=== PATIENT | male | born 1965 | race Caucasian/White ===

== ENCOUNTER 2017-06-30 16:50 | Emergency (ER) | payer OTHER ==
[2017-06-30 16:59] VITALS: BMI 28.1
[2017-06-30] MEDS ORDERED: methylPREDNISolone NA SUCC 125 MG/2 ML VIAL IVPB ONE (17:15)
[2017-06-30] MEDS ORDERED: ONDANSETRON 4 MG/2 ML VIAL IVPUSH ONE (17:15)
[2017-06-30] MEDS ORDERED: morphine CARPU-JECT 2 MG/1 ML DISP.SYRIN IVPUSH ONE (17:15)
[2017-06-30] MEDS ORDERED: SODIUM CHLORIDE 1,000 ML IV STA (17:21)
[2017-06-30] MEDS ORDERED: morphine CARPU-JECT 2 MG/1 ML DISP.SYRIN ONE (17:28)
[2017-06-30] MEDS ORDERED: ONDANSETRON 4 MG/2 ML VIAL ONE (17:28)
[2017-06-30] MEDS ORDERED: methylPREDNISolone NA SUCC 125 MG/2 ML VIAL ONE (17:29)
--- NOTE | 2017-06-30 17:42 | PDOC ---
*Physical Exam - Vital Signs Last Vital Signs Temp Pulse Resp BP Pulse Ox 98.7 F 84 18 146/98 100 06/30/17 16:56 06/30/17 16:56 06/30/17 16:56 06/30/17 16:56 06/30/17 16:56 - Physical Exam Comments: 06/30/17 17:42 The patient is a 51 year old male with a significant past medical history of uncontrolled HTN and HLD who presents to the ED with facial drooping for one week. Patient reports left sided facial drooping. He states his left eye feels scratchy and he has difficulty drinking from the left side of his mouth. Patient reports visiting [facility] ED last Saturday and was told to have an infection of his face and discharged on antibiotics. Since then, patient states he developed left upper and lower extremity weakness and pressure-like pain. Patient denies vision changes. Denies chest pain or shortness of breath. Denies abdominal pain, nausea, vomiting, or diarrhea. Denies fevers or chills. Denies any other symptoms. GENERAL/CONSTITUTIONAL: No fever or chills. No weakness. HEAD, EYES, EARS, NOSE AND THROAT: No change in vision. No ear pain or discharge. No sore throat. CARDIOVASCULAR: No chest pain or shortness of breath. RESPIRATORY: No cough, wheezing, or hemoptysis. GASTROINTESTINAL: No nausea, vomiting, diarrhea or constipation. GENITOURINARY: No dysuria, frequency, or change in urination. MUSCULOSKELETAL: No neck or back pain. SKIN: No rash NEUROLOGIC:+ facial drooping, extremity weakness and pain. No headache, vertigo , loss of consciousness ENDOCRINE: No increased thirst. No abnormal weight change. HEMATOLOGIC/LYMPHATIC: No anemia, easy bleeding, or history of blood clots. ALLERGIC/IMMUNOLOGIC: No hives or skin allergy. GENERAL: Awake, alert, and fully oriented, in no acute distress HEAD: No signs of trauma EYES: PERRLA, EOMI, sclera anicteric, conjunctiva clear ENT: Auricles normal inspection, hearing grossly normal, nares patent, oropharynx clear without exudates. Moist mucosa NECK: Normal ROM, supple, no lymphadenopathy, JVD, or masses LUNGS: Breath sounds equal, clear to auscultation bilaterally. No wheezes, and no crackles HEART: Regular rate and rhythm, normal S1 and S2, no murmurs, rubs or gallops ABDOMEN: Soft, nontender, normoactive bowel sounds. No guarding, no rebound. No masses EXTREMITIES: Normal range of motion, no edema. No clubbing or cyanosis. No cords, erythema, or tenderness NEUROLOGICAL:+ Weakness of left eyelid muscle, with tearing of left eye. Facial asymmetry with left sided facial droop. No weakness to right or left side of the face. Normal speech SKIN: Warm, Dry, normal turgor, no rashes or lesions noted. <Yogesh Artis - Last Filed: 06/30/17 18:36> - Vital Signs Last Vital Signs Temp Pulse Resp BP Pulse Ox 98.7 F 84 18 146/98 100 06/30/17 16:56 06/30/17 16:56 06/30/17 16:56 06/30/17 16:56 06/30/17 16:56 <Melo Dumont - Last Filed: 07/03/17 08:17> Heart Score/ECG Review #1 06/30/17 18:36 Vent. rate 65 bpm NV interval 176 ms QRS duration 86 Normal sinus rhythm Reported by: Dr. Dumont <Yogesh Artis - Last Filed: 06/30/17 18:36> ED Treatment Course - LABORATORY CBC & Chemistry Diagram: 06/30/17 17:40 06/30/17 17:40 <Yogesh Artis - Last Filed: 06/30/17 18:36> - LABORATORY CBC & Chemistry Diagram: 06/30/17 17:40 06/30/17 17:40 - RADIOLOGY Radiology Studies Ordered: Category Date Time Status HEAD CT WITHOUT CONTRAST [CT] Stat CT Scan 06/30/17 17:15 Ordered CHEST X-RAY PORTABLE* [RAD] Stat Radiology 06/30/17 17:15 Ordered <Melo Dumont - Last Filed: 07/03/17 08:17> *DC/Admit/Observation/Transfer - Attestations Scribe Attestion: 06/30/17 17:43 Documentation prepared by Yogesh Artis, acting as medical research tech for Melo Dumont MD <Yogesh Artis - Last Filed: 06/30/17 18:36> <Melo Dumont - Last Filed: 07/03/17 08:17> Diagnosis at time of Disposition: Guillen's palsy - Discharge Dispostion Disposition: HOME Condition at time of disposition: Stable - Prescriptions Prescriptions: Prednisone [Prednisone 50 MG TABLETS] 50 mg PO DAILY #5 tablet - Referrals Referrals: Melani Burns MD [Primary Care Provider] - Ovi aMrtinez DO [Staff Physician] - - Patient Instructions Printed Discharge Instructions: DI for Guillen's Palsy Additional Instructions: Take the prednisone as prescribed for 5 days to treat your bells palsy. Call the above number to make an appointment with neurology clinic. Print Language: MALTESE - Post Discharge Activity Work/School Note: Back to Work NIH Stroke Scale - Last Known Well Date/Time & Onset Date Last Known Well: 06/27/17 (It has been a few days.... not exactly sure) Time Last Known Well: 07:00 (Not really sure.... in the morning) - Initial Evaluation Level of consciousness: Alert Ask patient the month and their age: Answers both correctly Ask patient to open & close eyes; make fist and let go: Obeys both correctly Best gaze (horizontal eye movement): Normal Visual field testing: No visual field loss Facial paresis (Show teeth/raise eyebrows/close eyes tight): Minor paralysis ( flattened nasolabial fold, asymmetry on smiling) Motor Function: Left Arm: Normal Motor Function: Right Arm: Normal (extends arm 90 (or 45) degrees for 10 seconds without drift Motor Function: Left Leg: Normal (extends leg 30 degrees for 5 seconds without drift) Motor Function: Right Leg: Normal (extends leg 30 degrees for 5 seconds without drift) Limb Ataxia: No ataxia Sensory(Use pinprick test arms,legs,trunk,face/side to side): Normal Best language (Describe picture, name items, read sentences): No Aphasia Dysarthria (read several words): Normal articulation Extinction and Inattention: No abnormality - Total Score NIH Stroke Scale Score: 1 <Melo Dumont - Last Filed: 07/03/17 08:17>
[2017-06-30] MEDS ORDERED: ACETAMINOPHEN 500 MG TABLET (FP) PO ONE (17:43)
[2017-06-30 17:48] LABS: BASOPHIL 1.2 % (0-2.0); EOSINOPHIL 5.5 % (0-4.5); MCH 30.8 pg (25.7-33.7); MCHC 34.6 g/dl (32.0-35.9); MEAN CELL VOLUME 88.9 fl (80-96); MEAN PLT VOLUME 9.4 fl (7.5-11.1); PLATELET COUNT 227 K/MM3 (134-434); RDW 13.2 % (11.9-15.9); WHITE BLOOD COUNT 6.8 K/mm3 (4.0-10.0)
[2017-06-30] MEDS ORDERED: ACETAMINOPHEN 325 MG TABLET (FP) ONE (17:48)
[2017-06-30 18:03] LABS: INR 0.91 (0.82-1.09)
[2017-06-30 18:07] LABS: ANION GAP 7 (8-16); BILIRUBIN,TOTAL 0.4 mg/dL (0.2-1.0); CALCIUM 8.9 mg/dL (8.5-10.1); CO2 26 mmol/L (21-32); CREATININE 1.1 mg/dL (0.7-1.3); GLUCOSE,RANDOM 127 mg/dL (74-106); SGOT/AST 19 U/L (15-37); SGPT/ALT 36 U/L (12-78); TOT PROT 6.7 g/dl (6.4-8.2)
[2017-06-30 18:10] LABS: ALK PHOS 125 U/L (45-117); CPK 146 IU/L (39-308); TROPONIN I < 0.02 ng/ml (0.00-0.05)
[2017-06-30] MEDS ORDERED: predniSONE 20 MG TABLET (UD) PO ONE (21:01)
--- NOTE | 2017-06-30 21:03 | PDOC ---
*Physical Exam - Vital Signs Last Vital Signs Temp Pulse Resp BP Pulse Ox 98.7 F 84 18 146/98 100 06/30/17 16:56 06/30/17 16:56 06/30/17 16:56 06/30/17 16:56 06/30/17 16:56 ED Treatment Course - LABORATORY CBC & Chemistry Diagram: 06/30/17 17:40 06/30/17 17:40 - ADDITIONAL ORDERS Additional order review: Laboratory Results 06/30/17 06/30/17 17:40 17:40 INR 0.91 Sodium 141 Potassium 3.7 Chloride 108 H Carbon Dioxide 26 Anion Gap 7 L BUN 16 D Creatinine 1.1 Creat Clearance w eGFR > 60 Random Glucose 127 H D Calcium 8.9 Total Bilirubin 0.4 AST 19 ALT 36 Alkaline Phosphatase 125 H Creatine Kinase 146 Troponin I < 0.02 Total Protein 6.7 Albumin 4.0 06/30/17 17:40 RBC 5.10 MCV 88.9 MCHC 34.6 RDW 13.2 MPV 9.4 Neutrophils % 56.0 Lymphocytes % 33.3 Monocytes % 4.0 Eosinophils % 5.5 H Basophils % 1.2 - Medications Given in the ED: ED Medications Discontinued Medications Generic Name Dose Route Start Last Admin Trade Name Freq PRN Reason Stop Dose Admin Acetaminophen 1,000 mg 06/30/17 17:43 06/30/17 17:46 Tylenol - PO 06/30/17 17:44 975 mg ONCE ONE Administration Sodium Chloride 1,000 mls @ 1,000 mls/hr 06/30/17 17:21 06/30/17 17:46 Normal Saline - IV 06/30/17 18:20 1,000 mls/hr ASDIR STA Administration Methylprednisolone Sodium Succinate 125 mg 06/30/17 17:15 06/30/17 17:46 Solu-Medrol - IVPB 06/30/17 17:16 125 mg ONCE ONE Administration Morphine Sulfate 2 mg 06/30/17 17:15 06/30/17 17:46 Morphine Injection - IVPUSH 06/30/17 17:16 Not Given ONCE ONE Ondansetron HCl 4 mg 06/30/17 17:15 06/30/17 17:46 Zofran Injection IVPUSH 06/30/17 17:16 Not Given ONCE ONE Medical Decision Making - Medical Decision Making 06/30/17 21:03 Sign out taken from Dr. Dumont at 7pm. Pt is 51M with h/o HTN, HLD presenting with 1 week of left facial droop. Exam notable for left sided facial droop WITHOUT sparing of forehead, consistent with [place] palsy. Pt with otherwise non-focal neuro exam. 5/5 strength all extremities, sensation intact. Normal cerebellar function, normal gait. - CTH negative - Pt started on prednisone, will prescribe 5 day course - F/u with neurology *DC/Admit/Observation/Transfer Diagnosis at time of Disposition: Guillen's palsy - Discharge Dispostion Disposition: HOME Condition at time of disposition: Stable - Referrals Referrals: Melani Burns MD [Primary Care Provider] - Ovi Martinez DO [Staff Physician] - - Patient Instructions Printed Discharge Instructions: DI for Guillen's Palsy Additional Instructions: Take the prednisone as prescribed for 5 days to treat your bells palsy. Call the above number to make an appointment with neurology clinic. - Post Discharge Activity Work/School Note: Back to Work
[2017-06-30] MEDS ORDERED: predniSONE 20 MG TABLET (UD) ONE (21:38)
[2017-06-30 21:48] VITALS: BP 157/89; PULSE 82; TEMP 97.5
--- NOTE | 2017-07-01 11:25 | EKG ---
Test Reason : Blood Pressure : / mmHG Vent. Rate : 065 BPM Atrial Rate : 065 BPM P-R Int : 176 ms QRS Dur : 086 ms QT Int : 390 ms P-R-T Axes : 057 059 050 degrees QTc Int : 405 ms NORMAL SINUS RHYTHM NORMAL ECG WHEN COMPARED WITH ECG OF 17-SEP-2016 16:34, NO SIGNIFICANT CHANGE WAS FOUND Confirmed by ZAHIDA BOWDEN MD ([id number]) on 07/01/2017 11:25:12 AM Referred By: Confirmed By:ZAHIDA BOWDEN MD
== END 2017-06-30 21:48 | disposition home or self-care (01) ==
LOC: JER 16:50
PROC: 3E0337Z Introduction of Electrolytic and Water Balance Substance into Peripheral Vein, Percutaneous Approach (ICD-10-PCS; principal; 2017-06-30)
PROC: 3E0333Z Introduction of Anti-inflammatory into Peripheral Vein, Percutaneous Approach (ICD-10-PCS; 2017-06-30)
DX: G51.0 Bell's palsy (principal); I10 Essential (primary) hypertension; E78.00 Pure hypercholesterolemia, unspecified
CPT/HCPCS: 36415; 70450-TC; 70486-TC; 71010-TC; 80053; 84484; 85025; 85610; 93005; 93010; 96361; 96374; 99285-25

== ENCOUNTER 2017-07-03 12:09 | Emergency (ER) | payer OTHER ==
[2017-07-03 12:19] VITALS: BMI 28.1
[2017-07-03] MEDS ORDERED: KETOROLAC TROMETHAMINE 60 MG/2 ML VIAL IM ONE (13:08)
--- NOTE | 2017-07-03 13:15 | PDOC ---
History of Present Illness - General History Source: Patient Exam Limitations: No Limitations - History of Present Illness Initial Comments: 07/03/17 18:48 The patient is a 51 year old male with a significant past medical history of uncontrolled HTN and HLD who presents to the ED with mass to his mid chest. Patient states that he developed mid sternal mass that is tender when he touches it. He states that feeling ocassionally SOB. He denies any hemoptysis, cp, cough, leg swelling, or palpitations. He states that his recent dc of Guillen s Palsy has improved. Patient was recently dc from [facility] on 06/30 after being dx with [place] Palsy and was prescribed prednisone. Patient was seen at [facility] ED a week before that and was prescribed clindamycin for infection of the face according to him. Patient denies vision changes. Denies chest pain or shortness of breath. Denies abdominal pain, nausea, vomiting, or diarrhea. Denies fevers or chills. Denies any other symptoms. PCP - Dr. Davis <Anamika Colon - Last Filed: 07/03/17 18:48> - General History Source: Patient Exam Limitations: No Limitations - History of Present Illness Initial Comments: 07/03/17 13:08 <Kristian Briones - Last Filed: 07/05/17 16:07> - General Chief Complaint: Pain Stated Complaint: PAIN/ LT SIDE, ABD Time Seen by Provider: 07/03/17 12:49 Past History <Anamika Colon - Last Filed: 07/03/17 18:48> - Past Medical History Diabetes: Yes HTN: Yes Hypercholesterolemia: Yes Psychiatric Problems: Yes (ANXIETY.) Suicide Attempt (Hx): No - Immunization History Immunization Up to Date: Yes - Psycho/Social/Smoking Cessation Hx Anxiety: Yes Suicidal Ideation: No Smoking Status: No Smoking History: Never smoked Have you smoked in the past 12 months: No Number of Cigarettes Smoked Daily: 0 Hx Alcohol Use: No Drug/Substance Use Hx: No Substance Use Type: None Hx Substance Use Treatment: No <Kristian Briones - Last Filed: 07/05/17 16:07> - Past Medical History Allergies/Adverse Reactions: Allergies Allergy/AdvReac Type Severity Reaction Status Date / Time Penicillins Allergy Intermediate Hives Verified 07/03/17 12:18 Home Medications: Ambulatory Orders Prednisone [Prednisone 50 MG TABLETS] 50 mg PO DAILY #5 tablet 06/30/17 Clindamycin [Cleocin -] 600 mg PO Q6H 07/03/17 Solifenacin Succinate [Vesicare -] 5 mg PO DAILY 07/03/17 Tamsulosin HCl 0.4 mg PO DAILY 07/03/17 Review of Systems - Review of Systems Able to Perform ROS?: Yes Comments:: 07/03/17 18:48 CONSTITUTIONAL: No reported: Fever, Chills, Diaphoresis, Generalized Weakness, Malaise, Loss of Appetite HEENT: No reported: Rhinorrhea, Nasal Congestion, Throat Pain, Throat Swelling, Difficulty Swallowing, Mouth Swelling, Ear Pain, Eye Pain, Visual Changes CARDIOVASCULAR: No reported: Chest Pain, Syncope, Palpitations, Irregular Heart Rate, Lightheadedness, Peripheral Edema RESPIRATORY: No reported: Cough, Shortness of Breath, SOB with Exertion, Orthopnea, Wheezing , Stridor, Hemoptysis GASTROINTESTINAL: No reported: Abdominal pain, Abdominal Distension, Nausea, Vomiting, Diarrhea, Constipation, Melena, Hematochezia GENITOURINARY: No reported: Dysuria, Frequency, Urgency, Hesitancy, Flank Pain, Genital Pain MUSCULOSKELETAL: No reported: Myalgia, Arthralgia, Joint Swelling, Back pain, Neck Pain SKIN: Reported: mass over sternum No reported: Rash, Itching, Pallor HEMEATOLOGIC/IMMUNOLOGIC: No reported: Easy Bleeding, Easy Bruising, Lymphadenopathy, Frequent infections ENDOCRINE: No reported: Unexplained Weight Gain, Unexplained Weight Loss, Heat Intolerance , Cold Intolerance NEUROLOGIC: No reported: Headache, Focal Weakness, Paresthesias, Vertigo, Lightheadedness, Unsteady Gait, Seizure, Mental Status Changes, Incontinence PSYCHIATRIC: No reported: Anxiety, Depression <Anamika Colon - Last Filed: 07/03/17 18:48> *Physical Exam - Vital Signs Last Vital Signs Temp Pulse Resp BP Pulse Ox 98.6 F 66 18 145/78 100 07/03/17 17:07 07/03/17 17:07 07/03/17 17:07 07/03/17 17:07 07/03/17 17:07 - Physical Exam Comments: 07/03/17 18:49 GENERAL: The patient is awake, alert, and fully oriented, Nontoxic - in no acute distress. HEAD:Normocephalic, atraumatic. EYES: extraocular movements intact, sclera anicteric, conjunctiva clear. ENT: Normal voice, Moist mucous membranes. NECK: Normal range of motion, supple LUNGS: Breath sounds equal, clear to auscultation bilaterally. No wheezes, no rhonchi, no rales. HEART: Regular rate and rhythm, without murmur, rub or gallop. CHEST: (+)mild tenderness to his sternum ABDOMEN: Soft, nontender, normoactive bowel sounds. No guarding, no rebound.No CVA tenderness EXTREMITIES: Normal range of motion, no edema. No clubbing or cyanosis. No cords , erythema, or tenderness. NEUROLOGICAL: (+)mild left sided facial weakness in v2v3 distribution. Normal speech. PSYCH: Normal mood, normal affect. SKIN: Warm, Dry, normal turgor <Anamika Colon - Last Filed: 07/03/17 18:48> - Vital Signs Last Vital Signs Temp Pulse Resp BP Pulse Ox 97.6 F 81 20 153/98 98 07/03/17 12:15 07/03/17 12:15 07/03/17 12:15 07/03/17 12:15 07/03/17 12:15 <Kristian Briones - Last Filed: 07/05/17 16:07> Heart Score/ECG Review - ECG Impressions Comment:: 07/03/17 13:42 Twelve-lead EKG was performed and reviewed by me. There is normal sinus rhythm with a normal rate. Rate of 64 The axis is normal. The intervals are normal. There is normal R wave progression There are no ST or T wave abnormalities. Impression: Normal twelve-lead EKG <Kristian Briones - Last Filed: 07/05/17 16:07> ED Treatment Course - LABORATORY CBC & Chemistry Diagram: 07/03/17 13:26 07/03/17 13:26 - ADDITIONAL ORDERS Additional order review: Laboratory Results 07/03/17 13:26 Sodium 142 Potassium 4.4 Chloride 105 Carbon Dioxide 31 Anion Gap 6 L BUN 15 Creatinine 1.0 Creat Clearance w eGFR > 60 Random Glucose 80 D Calcium 9.6 Total Bilirubin 0.5 D AST 16 ALT 39 Alkaline Phosphatase 113 Creatine Kinase 56 Troponin I < 0.02 Total Protein 7.3 Albumin 4.2 07/03/17 13:26 RBC 5.34 MCV 90.7 MCHC 33.1 RDW 13.3 MPV 9.1 Neutrophils % 57.7 Lymphocytes % 36.0 Monocytes % 5.5 Eosinophils % 0.4 D Basophils % 0.4 - Medications Given in the ED: ED Medications Discontinued Medications Generic Name Dose Route Start Last Admin Trade Name Stefano PRN Reason Stop Dose Admin Ketorolac Tromethamine 60 mg 07/03/17 13:08 07/03/17 13:26 Toradol Injection - IM 07/03/17 13:09 60 mg ONCE ONE Administration <Anamika Colon - Last Filed: 07/03/17 18:48> - LABORATORY CBC & Chemistry Diagram: 07/03/17 13:26 07/03/17 13:26 - RADIOLOGY Radiology Studies Ordered: Category Date Time Status CHEST PA & LAT [RAD] Stat Radiology 07/03/17 13:07 Ordered <Kristian Briones - Last Filed: 07/05/17 16:07> Medical Decision Making - Medical Decision Making 07/03/17 13:08 51y M hx of htn, hl, presents with complaint of bump on his chest tht is painful when he touches it for about a week. pt also endorses mild sob w/o coughm fever, chills, leg swelling, hemoptysis. On exam the pt appears well and has tenderness in the distal and mid sternum b/l to palpation. lungs are clear. he has some residulal L sided weaness along V2 and V3 distribution. suspect costocondritis due to risk factors will obtain trop and ekg cxr to r/o pna will reassess will give pt dose of toradol A portion of this note was documented by scribe services under my direction. I have reviewed the details of the note, within reason, and agree with the documentation with the following case summary and management plan written by me 07/03/17 13:42 07/03/17 16:27 [pts symptoms improved will d/c the pt with pmd fu return precuations were discussed I discussed the physical exam findings, ancillary test results and final diagnoses with the patient. I answered all of the patient's questions. The patient was satisfied with the care received and felt comfortable with the discharge plan and treatment plan. The patient will call their primary care physician within 24 hours to arrange follow-up and will return to the Emergency Department with any new, persistent or worsening symptoms. <Kristian Briones - Last Filed: 07/05/17 16:07> *DC/Admit/Observation/Transfer - Attestations Scribe Attestion: 07/03/17 18:39 Documentation prepared by JANICE Kessler, acting as administrative medical director for Kristian Briones MD. <Anamika Colon - Last Filed: 07/03/17 18:48> - Discharge Dispostion Admit: No <Kristian Briones - Last Filed: 07/05/17 16:07> Diagnosis at time of Disposition: Costochondral chest pain - Discharge Dispostion Disposition: HOME Condition at time of disposition: Improved - Referrals Referrals: Melani Burns MD [Primary Care Provider] - - Patient Instructions Printed Discharge Instructions: DI for Atypical Chest Pain Additional Instructions: Vuelva al departamento de emergencia inmediatamente con CUALQUIER nuevo, persistente o empeorando sntomas si usted tiene cualquier dolor de pecho, dificultad para respirar. [place] el ibuprofeno para george dolor. Debe llamar y seguir con george mdico maana para liberty evaluacin ms detallada de joelle sntomas. Los resultados fueron discutidos con usted. Por favor, asegrese de que george mdico revise los resultados de goerge evaluacin de emergencia. Si usted tuvo alguna radiografa cris george visita, fue ledo preliminarmente por m mismo, un Radilogo lo revisar y si hay algn hallazgo adicional lo llamaremos. ========= Return to the emergency department immediately with ANY new, persistent or worsening symptoms if you have any chest pain, shortness of breath. TAke ibuprofen for your pain. You MUST call and follow up with your doctor tomorrow for further evaluation of your symptoms. Results were discussed with you. Please make sure your doctor reviews the results of your emergency evaluation. If you had any xrays during your visit, it was read preliminarily by myself, a Radiologist will review it and if there are any additional findings we will call you. Print Language: BULGARIAN
[2017-07-03] MEDS ORDERED: KETOROLAC TROMETHAMINE 60 MG/2 ML VIAL ONE (13:34)
[2017-07-03 14:29] LABS: BASOPHIL 0.4 % (0-2.0); EOSINOPHIL 0.4 % (0-4.5); MCH 30.1 pg (25.7-33.7); MCHC 33.1 g/dl (32.0-35.9); MEAN CELL VOLUME 90.7 fl (80-96); MEAN PLT VOLUME 9.1 fl (7.5-11.1); NEUTROPHILS 57.7 % (42.8-82.8); PLATELET COUNT 225 K/MM3 (134-434); RDW 13.3 % (11.9-15.9)
[2017-07-03 14:52] LABS: ALBUMIN 4.2 g/dl (3.4-5.0); ANION GAP 6 (8-16); BILIRUBIN,TOTAL 0.5 mg/dL (0.2-1.0); CALCIUM 9.6 mg/dL (8.5-10.1); CO2 31 mmol/L (21-32); GLUCOSE,RANDOM 80 mg/dL (74-106); SGOT/AST 16 U/L (15-37); SGPT/ALT 39 U/L (12-78); TOT PROT 7.3 g/dl (6.4-8.2)
[2017-07-03 14:55] LABS: ALK PHOS 113 U/L (45-117); CPK 56 IU/L (39-308); TROPONIN I < 0.02 ng/ml (0.00-0.05)
[2017-07-03 17:09] VITALS: BP 145/78; PULSE 66; TEMP 98.6
--- NOTE | 2017-07-04 11:13 | EKG ---
Test Reason : Blood Pressure : / mmHG Vent. Rate : 064 BPM Atrial Rate : 064 BPM P-R Int : 176 ms QRS Dur : 088 ms QT Int : 378 ms P-R-T Axes : 057 048 053 degrees QTc Int : 389 ms NORMAL SINUS RHYTHM NORMAL ECG WHEN COMPARED WITH ECG OF 30-JUN-2017 18:34, NO SIGNIFICANT CHANGE WAS FOUND Confirmed by MARY BAER MD ([id number]) on 07/04/2017 11:12:38 AM Referred By: Confirmed By:MARY BAER MD
== END 2017-07-03 17:09 | disposition home or self-care (01) ==
LOC: JER 12:09
PROC: 3E0233Z Introduction of Anti-inflammatory into Muscle, Percutaneous Approach (ICD-10-PCS; principal; 2017-07-03)
DX: M94.0 Chondrocostal junction syndrome [Tietze] (principal)
CPT/HCPCS: 36415; 71020-TC; 80053; 84484; 85025; 93005; 93010; 96372; 99282-25

== ENCOUNTER 2017-12-09 17:34 | Emergency (ER) | payer OTHER ==
[2017-12-09 17:50] VITALS: BMI 28.1
--- NOTE | 2017-12-09 17:50 | PDOC ---
Rapid Medical Evaluation Time Seen by Provider: 12/09/17 17:46 Medical Evaluation: Allergies Allergy/AdvReac Type Severity Reaction Status Date / Time Penicillins Allergy Intermediate Hives Verified 12/09/17 17:46 12/09/17 17:46 The patient presents with a chief complaint of: [Fatigue, Increased urination.Generalized body aches, dizziness. for three days. ] I have performed a brief in-person evaluation of this patient. Pertinent physical exam findings: vss, [Lungs clear, RRR, HR 90. Abdomen is soft, non tender nondistended] I have ordered the following: [Rapid influenza, CBC, CMP UA, UC] The patient will proceed to the ED for further evaluation. Discharge Disposition - Diagnosis Dizziness - Referrals - Patient Instructions - Post Discharge Activity
[2017-12-09 18:21] LABS: EOS % 6.2 % (0-4.5); HEMATOCRIT 45.5 % (35.4-49); HEMOGLOBIN 15.5 GM/dL (11.7-16.9); LYMPH % 29.2 % (8-40); MCH 30.4 pg (25.7-33.7); MCHC 34.1 g/dl (32.0-35.9); MEAN CELL VOLUME 89.2 fl (80-96); MEAN PLT VOLUME 9.5 fl (7.5-11.1); MONO % 4.6 % (3.8-10.2); PLATELET COUNT 218 K/MM3 (134-434); RDW 13.3 % (11.9-15.9); WHITE BLOOD COUNT 8.3 K/mm3 (4.0-10.0)
[2017-12-09 18:26] LABS: URINE APPEARANCE CLEAR; URINE BILIRUBIN NEGATIVE (NEGATIVE); URINE BLOOD NEGATIVE (NEGATIVE); URINE COLOR COLORLESS; URINE GLUCOSE (UA) NEGATIVE (NEGATIVE); URINE KETONE NEGATIVE (NEGATIVE); URINE LEUK ESTERASE NEGATIVE (NEGATIVE); URINE NITRITE NEGATIVE (NEGATIVE); URINE PROTEIN NEGATIVE (NEGATIVE); URINE UROBILINOGEN NEGATIVE mg/dL (0.2-1.0)
--- NOTE | 2017-12-09 18:56 | PDOC ---
History of Present Illness - General History Source: Patient Exam Limitations: No Limitations, Language Barrier (kiswahili speaking, dry pan feeder used) - History of Present Illness Initial Comments: 12/09/17 19:49 The patient is a 52 year old male, with a significant past medical history of BPH, hypertension, and possible diabetes (patient unaware, but on prior charts) , who presents to the emergency department with dry mouth, fatigue, and increased urinary frequency for the past few days. He denies dysuria, urgency. He denies hematuria or abdominal pain. He denies chest pain, shortness of breath, headache and dizziness. He denies fever, chills, nausea, vomit, diarrhea and constipation. Allergies: NKDA PCP: Dr. Melgar <Minerva Johnson - Last Filed: 12/09/17 19:49> <Alisson Watsno - Last Filed: 12/09/17 19:58> - General Chief Complaint: Weakness Stated Complaint: FATIGUE Time Seen by Provider: 12/09/17 17:46 Past History <Minerva Johnson - Last Filed: 12/09/17 19:49> - Past Medical History COPD: No Diabetes: Yes HTN: Yes Hypercholesterolemia: Yes Psychiatric Problems: Yes (ANXIETY.) Other medical history: bph - Immunization History Immunization Up to Date: Yes - Suicide/Smoking/Psychosocial Hx Smoking Status: No Smoking History: Never smoked Have you smoked in the past 12 months: No Number of Cigarettes Smoked Daily: 0 Information on smoking cessation initiated: No Hx Alcohol Use: No Drug/Substance Use Hx: No Substance Use Type: None Hx Substance Use Treatment: No <Alisson Watson - Last Filed: 12/09/17 19:58> - Past Medical History Allergies/Adverse Reactions: Allergies Allergy/AdvReac Type Severity Reaction Status Date / Time Penicillins Allergy Intermediate Hives Verified 12/09/17 17:46 Home Medications: Ambulatory Orders Prednisone [Prednisone 50 MG TABLETS] 50 mg PO DAILY #5 tablet 06/30/17 Clindamycin [Cleocin -] 600 mg PO Q6H 07/03/17 Solifenacin Succinate [Vesicare -] 5 mg PO DAILY 07/03/17 Tamsulosin HCl 0.4 mg PO DAILY 07/03/17 Review of Systems - Review of Systems Able to Perform ROS?: Yes Comments:: 12/09/17 19:50 CONSTITUTIONAL: Absent: fever, chills, diaphoresis, generalized weakness, malaise, loss of appetite HEENT: Absent: rhinorrhea, nasal congestion, throat pain, throat swelling, difficulty swallowing, mouth swelling, ear pain, eye pain, visual Changes CARDIOVASCULAR: Absent: chest pain, syncope, palpitations, irregular heart rate, lightheadedness , peripheral edema RESPIRATORY: Absent: cough, shortness of breath, dyspnea with exertion, orthopnea, wheezing, stridor, hemoptysis GASTROINTESTINAL: Absent: abdominal pain, abdominal distension, nausea, vomiting, diarrhea, constipation, melena, hematochezia GENITOURINARY: (+) increased frequency, Absent: dysuria, urgency, hesitancy, hematuria, flank pain, genital pain MUSCULOSKELETAL: Absent: myalgia, arthralgia, joint swelling SKIN: Absent: rash, itching, pallor HEMATOLOGIC/IMMUNOLOGIC: Absent: easy bleeding, easy bruising, lymphadenopathy, frequent infections ENDOCRINE: Absent: unexplained weight gain, unexplained weight loss, heat intolerance, cold intolerance NEUROLOGIC: Absent: headache, focal weakness or paresthesias, dizziness, unsteady gait, seizure, mental status changes, bladder or bowel incontinence PSYCHIATRIC: Absent: anxiety, depression, suicidal or homicidal ideation, hallucinations. <Minerva Johnson - Last Filed: 12/09/17 19:49> *Physical Exam - Vital Signs Last Vital Signs Temp Pulse Resp BP Pulse Ox 98.5 F 90 18 165/100 100 12/09/17 17:47 12/09/17 17:47 12/09/17 17:47 12/09/17 17:47 12/09/17 17:47 - Physical Exam Comments: 12/09/17 19:50 GENERAL: Well developed, well nourished. Awake and alert. No acute distress. HEENT: (+) Dry mucous membranes. Normocephalic, atraumatic. PERRLA, EOMI. No conjunctival pallor. Sclera are non-icteric.Oropharynx is clear. NECK: Supple. Full ROM. No JVD. Carotid pulses 2+ and symmetric, without bruits. No thyromegaly. No lymphadenopathy. CARDIOVASCULAR: Regular rate and rhythm. No murmurs, rubs, or gallops. Distal pulses are 2+ and symmetric. PULMONARY: No evidence of respiratory distress. Lungs clear to auscultation bilaterally. No wheezing, rales or rhonchi. ABDOMINAL: Soft. Non-tender. Non-distended. No rebound or guarding. No organomegaly. Normoactive bowel sounds. MUSCULOSKELETAL Normal range of motion at all joints. No bony deformities or tenderness. No CVA tenderness. EXTREMITIES: No cyanosis. No clubbing. No edema. No calf tenderness. SKIN: Warm and dry. Normal capillary refill. No rashes. No jaundice. NEUROLOGICAL: Alert, awake, appropriate. Cranial nerves 2-12 intact. Normoreflexic in the upper and lower extremities. Normal speech. Toes are down-going bilaterally. Gait is normal without ataxia. PSYCHIATRIC: Cooperative. Good eye contact. Appropriate mood and affect. <Minerva Johnson - Last Filed: 12/09/17 19:49> - Vital Signs Last Vital Signs Temp Pulse Resp BP Pulse Ox 98.5 F 90 18 165/100 100 12/09/17 17:47 12/09/17 17:47 12/09/17 17:47 12/09/17 17:47 12/09/17 17:47 <Alisson Watson - Last Filed: 12/09/17 19:58> ED Treatment Course - LABORATORY CBC & Chemistry Diagram: 12/09/17 18:09 12/09/17 18:09 - ADDITIONAL ORDERS Additional order review: Laboratory Results 12/09/17 12/09/17 12/09/17 19:26 18:09 18:09 Sodium 140 Potassium 4.1 Chloride 106 Carbon Dioxide 24 D Anion Gap 10 BUN 16 Creatinine 1.1 Creat Clearance w eGFR > 60 POC Glucometer 93.66369 Random Glucose 89 Calcium 8.7 Total Bilirubin 0.4 AST 18 ALT 38 Alkaline Phosphatase 137 H D Total Protein 7.6 Albumin 4.3 Urine Color Colorless Urine Appearance Clear Urine pH 6.0 Ur Specific [place] 1.002 Urine Protein Negative Urine Glucose (UA) Negative Urine Ketones Negative Urine Blood Negative Urine Nitrite Negative Urine Bilirubin Negative Urine Urobilinogen Negative Ur Leukocyte Esterase Negative 12/09/17 18:09 Influenza Types A,B Antigen (YOHAN) - Final Nasopharyngeal Swab - Final 12/09/17 12/09/17 19:26 18:09 RBC 5.10 MCV 89.2 MCHC 34.1 RDW 13.3 MPV 9.5 Neutrophils % 59.0 Lymphocytes % 29.2 Monocytes % 4.6 Eosinophils % 6.2 H D Basophils % 1.0 POC Glucometer 93.35211 <Minerva Johnson - Last Filed: 12/09/17 19:49> - LABORATORY CBC & Chemistry Diagram: 12/09/17 18:09 12/09/17 18:09 - ADDITIONAL ORDERS Additional order review: Laboratory Results 12/09/17 18:09 Urine Color Colorless Urine Appearance Clear Urine pH 6.0 Ur Specific [place] 1.002 Urine Protein Negative Urine Glucose (UA) Negative Urine Ketones Negative Urine Blood Negative Urine Nitrite Negative Urine Bilirubin Negative Urine Urobilinogen Negative Ur Leukocyte Esterase Negative 12/09/17 18:09 RBC 5.10 MCV 89.2 MCHC 34.1 RDW 13.3 MPV 9.5 Neutrophils % 59.0 Lymphocytes % 29.2 Monocytes % 4.6 Eosinophils % 6.2 H D Basophils % 1.0 <Alisson Watson - Last Filed: 12/09/17 19:58> Medical Decision Making - Medical Decision Making 12/09/17 19:30 52-year-old man presents with complaint of persistent increased frequency, dry mouth and some fatigue. Patient states he's been urinating constantly over the past few days. He is afebrile. He has no nausea, vomiting or diarrhea. He has benign abdominal exam. He has a history of BPH and states that his primary doctor is Dr. Melgar He was hypotensive upon arrival. States he's been told that his blood pressure is elevated. The past that he's never taken any blood pressure medicines. Last time he saw /year. Urinalysis is negative CBC is within normal limits Chemistries are unremarkable. Glucose of 89. He had also done a BGM on the patient was 93. He was 16 and creatinine is 1.1. His electrolytes are within normal limits and his liver function tests are unremarkable. Impression dysuria. Plan to follow Dr. Melgar and also refer this patient to the urologist <Alisson Watson - Last Filed: 12/09/17 19:58> *DC/Admit/Observation/Transfer - Attestations Scribe Attestion: 12/09/17 19:51 Documentation prepared by Minerva Johnson, acting as medical staff manager for Alisson Watson MD <Minerva Johnson - Last Filed: 12/09/17 19:49> <Alisson Watson - Last Filed: 12/09/17 19:58> Diagnosis at time of Disposition: Urinary frequency, Xerostomia, Benign prostatic hyperplasia (BPH) with urinary urgency - Discharge Dispostion Disposition: HOME Condition at time of disposition: Stable - Referrals Referrals: Melani Melgar MD [Primary Care Provider] - - Patient Instructions Printed Discharge Instructions: DI for Benign Prostatic Hyperplasia, DI for High Blood Pressure Additional Instructions: 1. YOU NEED TO SEE DR MELGAR FOR FURTHER FOLLOWUP 2.YOU MAY NEED TO SEE A UROLOGIST - Post Discharge Activity
[2017-12-09 18:59] LABS: ALBUMIN 4.3 g/dl (3.4-5.0); ANION GAP 10 (8-16); BILIRUBIN,TOTAL 0.4 mg/dL (0.2-1.0); BLOOD UREA NITROGEN 16 mg/dL (7-18); CALCIUM 8.7 mg/dL (8.5-10.1); CHLORIDE 106 mmol/L (98-107); CO2 24 mmol/L (21-32); CREATININE 1.1 mg/dL (0.7-1.3); GLUCOSE,RANDOM 89 mg/dL (74-106); POTASSIUM 4.1 mmol/L (3.5-5.1); SGOT/AST 18 U/L (15-37); SGPT/ALT 38 U/L (12-78); SODIUM 140 mmol/L (136-145)
[2017-12-09 19:01] LABS: ALK PHOS 137 U/L (45-117); TOT PROT 7.6 g/dl (6.4-8.2)
[2017-12-09 19:56] VITALS: BP 142/86; PULSE 77; TEMP 98.2
== END 2017-12-09 20:30 | disposition home or self-care (01) ==
LOC: JER 17:34
DX: I10 Essential (primary) hypertension (principal); E78.00 Pure hypercholesterolemia, unspecified; E11.9 Type 2 diabetes mellitus without complications; Z79.84 Long term (current) use of oral hypoglycemic drugs; N40.0 Benign prostatic hyperplasia without lower urinary tract symptoms; N40.1 Benign prostatic hyperplasia with lower urinary tract symptoms; R39.15 Urgency of urination; K11.7 Disturbances of salivary secretion; R68.2 Dry mouth, unspecified
CPT/HCPCS: 36415; 80053; 81003; 82962; 85025; 87086; 87804; 99283-25

== ENCOUNTER 2018-10-25 09:56 | Emergency (ER) | payer SELFPAY ==
[2018-10-25 10:17] VITALS: TEMP 98.1; BMI 29.0
--- NOTE | 2018-10-25 10:37 | PDOC ---
Attending Attestation - HPI HPI: 10/25/18 11:30 The patient is a 53 year old male, with a significant past medical history of HTN, HLD, and DM, who presents to the emergency department with, pleuritic chest discomfort, nasal congestion, sinus congestion, and productive cough. Patient endorses mild right sided facial pain. 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 Samayoa, without any pertinent findings. He denies any recent dizziness. He denies any recent nausea, vomit, diarrhea or constipation. He denies any recent palpitations shortness of breath. He denies any recent dysuria, frequency, urgency or hematuria. Allergies: Penicillins. Past surgical history: None reported. Social History: Former smoker. Financial Quantitative Analyst: Dr. Samayoa <Sally Conner - Last Filed: 10/25/18 11:30> - Resident Resident Name: Herminia Wolfe - ED Attending Attestation I have performed the following: I have examined & evaluated the patient, The case was reviewed & discussed with the resident, I agree w/resident's findings & plan, Exceptions are as noted - Physicial Exam PE: 10/25/18 12:08 HEENT: +ttp to R frontal sinus pulm: cta b/l, no acute respiratory distress - Medical Decision Making 10/25/18 10:38 53y M hx of htn, hl, dm, presents with several days of nasal congestion, productive cough. Pt also complaining R sided confucianist/facial pain. pt endorses some pleuritic L cp worse with deep breaths and coughs. n oassociated fevers/ lopez, leg swelling hemotpysis. 10/25/18 12:08 suspect viral syndrome/bronchitis influenza negative xray negative for acute pulm mathology will dc with pmd fu return precautions were discussed 10/28/18 09:18 <Kristian Briones - Last Filed: 10/28/18 09:18> Heart Score/ECG Review - ECG Impressions Comment:: 10/25/18 12:08 Twelve-lead EKG was performed and reviewed by me. There is normal sinus rhythm with a normal rate. rate of 75 The axis is normal. The intervals are normal. There is normal R wave progression There are no ST or T wave abnormalities. Impression: Normal twelve-lead EKG <Kristian Briones - Last Filed: 10/28/18 09:18> Attestations - Attestations 10/25/18 11:30 Documentation prepared by Sally Conner, acting as medical affairs leader for Kristian Briones MD. <Sally Conner - Last Filed: 10/25/18 11:30>
--- NOTE | 2018-10-25 10:42 | PDOC ---
History of Present Illness - General Chief Complaint: Chest Pain Stated Complaint: CHEST PAIN, HEADACHE, BREATHING PROBLEMS Time Seen by Provider: 10/25/18 10:04 - History of Present Illness Initial Comments: Alejandro Hermosillo is a 53yo man with a PMH of HTN, HLD, DM who presents with productive cough, nasal congestion, sinus congestion and pain as well as pleuritic chest tenderness that have worsened since yesterday. He reports that for several days, he has had nasal congestion and has been unable to breath through his right nostril. Starting yesterday, he has also had pain on the right face and hindu that prevented him from sleeping. He additionally complains of a productive cough and now left-sided chest pain, especially at the sternum and left lateral ribs, with coughing and deep breaths. Mr Hermosillo also reports right flank pain that has been present for months as well as left thigh pain that is also chronic and mild. He says that neither of these bothers him much. Mr Hermosillo denies any fevers, shivering chills, shortness of breath, nausea/ vomiting, urinary changes, or changes in bowel habits. He has not tried any medications at home for his symptoms. He presented for evaluation because the sinus pain and congestion were preventing him from sleeping well. Past History - Past Medical History Allergies/Adverse Reactions: Allergies Allergy/AdvReac Type Severity Reaction Status Date / Time Penicillins Allergy Intermediate Hives Verified 10/25/18 10:04 Home Medications: Ambulatory Orders Prednisone [Prednisone 50 MG TABLETS] 50 mg PO DAILY #5 tablet 06/30/17 Solifenacin Succinate [Vesicare -] 5 mg PO DAILY 07/03/17 Tamsulosin HCl 0.4 mg PO DAILY 07/03/17 Aspirin [ASA -] 81 mg PO DAILY 10/25/18 COPD: No Diabetes: Yes HTN: Yes Hypercholesterolemia: Yes Psychiatric Problems: Yes (ANXIETY.) - Immunization History Immunization Up to Date: Yes - Suicide/Smoking/Psychosocial Hx Smoking Status: No Smoking History: Former smoker Have you smoked in the past 12 months: No Number of Cigarettes Smoked Daily: 0 Information on smoking cessation initiated: No Hx Alcohol Use: No Drug/Substance Use Hx: No Substance Use Type: None Hx Substance Use Treatment: No Review of Systems - Review of Systems Comments:: General: No fevers, no chills, no weight or appetite change, no malaise HEENT: No changes in vision, no changes in hearing, +Nasal and sinus congestion , +sinus pain, no sore throat CV: +Pleuritic lateral chest pain, No palpitations, no LE edema Pulm: No SOB, +productive cough, no wheezing GI: No nausea or vomiting, no change in bowel habits, no melena : No frequency, no urgency, no dysuria Musc: No back pain, no joint swelling, no recent injury Skin: No rash, no lesions, no erythema Endo: No excessive thirst, no heat/cold intolerance Heme: No unusual bruising or bleeding, no swollen glands Neuro: No syncope, no numbness/tingling, no focal weakness Vasc: No claudication Psych: No recent change in mood, no SI or HI *Physical Exam - Vital Signs Last Vital Signs Temp Pulse Resp BP Pulse Ox 98.1 F 84 19 130/91 99 10/25/18 10:04 10/25/18 10:04 10/25/18 10:04 10/25/18 10:04 10/25/18 10:04 - Physical Exam Comments: General: Comfortable, no acute distress HEENT: PERRL, EOMI, MMM, voice nasal and c/w congestion, normal neck ROM, no LAD. Right-sided sinus tenderness. Cards: RRR, no murmur appreciated Pulm: Comfortable on room air, clear to auscultation bilaterally. Productive cough. Chest: Reproducible sternal and left lateral chest wall pain with palpation. Back: No spinal tenderness. Abd: Soft, nontender, nondistended : No CVA tenderness Ext: Atraumatic. No LE edema. ROM intact. Strength 5/5 and equal bilaterally. No TTP along left thigh. Vasc: Extremities WWP. Skin: Normal color, no rashes or lesions Neuro: A&Ox3, CN grossly intact, normal speech, motor/sensory grossly intact and symmetric Psych: Mood appropriate to situation Moderate Sedation - Procedure Monitoring Vital Signs: Procedure Monitoring Vital Signs Temperature 98.1 F 10/25/18 10:04 Pulse Rate 84 10/25/18 10:04 Respiratory Rate 19 10/25/18 10:04 Blood Pressure 130/91 10/25/18 10:04 O2 Sat by Pulse Oximetry (%) 99 10/25/18 10:04 ED Treatment Course - RADIOLOGY Radiology Studies Ordered: Category Date Time Status CHEST PA & LAT [RAD] Stat Radiology 10/25/18 10:32 Ordered Medical Decision Making - Medical Decision Making 10/25/18 11:09 Alejandro Hermosillo is a 53yo man with a PMH of HTN, HLD, DM who presents with productive cough, nasal congestion, sinus congestion and pain as well as pleuritic chest tenderness that have worsened since yesterday. He reports that for several days, he has had nasal congestion and has been unable to breath through his right nostril. Starting yesterday, he has also had pain on the right face and hindu that prevented him from sleeping. He additionally complains of a productive cough 10/25/18 11:26 - Chest xray completed. Reviewed and also read by radiology. - Ibuprofen 800mg PO ordered for pain/inflammation - Most likely viral respiratory infection - Plan to d/c home pending flu results. Will discuss home care and return precautions. 10/25/18 11:48 - Rapid flu negative - Discharge home Discussed with Dr Briones. Herminia Wolfe PGY1 *DC/Admit/Observation/Transfer Diagnosis at time of Disposition: Viral URI with cough, Sinusitis, acute - Discharge Dispostion Disposition: HOME Condition at time of disposition: Stable Decision to Admit order: No - Referrals Referrals: Melani Burns MD [Staff Physician] - - Patient Instructions Printed Discharge Instructions: DI for Sinusitis, DI for Viral Upper Respiratory Infection -- Adult Additional Instructions: Discharge Instructions: You were seen in the emergency department for sinus pain, cough, and chest pain with deep breathing. These are all most likely due to a viral respiratory infection and nasal/sinus congestion. Home Care: - You may take 600-800mg ibuprofen (Motrin or Advil) every 6 hours as needed for pain an discomfort - You may get some relief of your congestion if you use a saline nasal spray to increase moisture in your nose. This spray can be purchased at any pharmacy. You can use 1-2 sprays in each nostril as needed. - You can get a nasal wash such as a NetiPot at any pharmacy. This nasal wash helps remove congestion and irritants from your nose and sinuses - Use a humidifier at night, placed near your bed, to help relieve your symptoms of congestion. You can also use a hot shower or steam if you do not have a humidifier - Your chest pain is most likely due to irritation from frequent coughing. Using ibuprofen as mentioned (600-800mg every 6 hours) will help with this pain. - Try to drink extra fluids. Hot liquids such as tea or soup may help relieve your symptoms. Follow Up: - Make an appointment to see your regular doctor within the next week for follow up - Seek medical care if you develop fevers to 101F or higher, your symptoms do not improve within 7 days, you develop worsening cough with a lot of mucous production, or if your chest pain worsens, is associated with exercise, or is accompanied by sweating, shortness of breath, or lightheadedness. Instrucciones de descarga: Usted fue atendido en el departamento de emergencias por dolor sinusal, tos y dolor de pecho con respiracin profunda. Todo esto es ms probable debido a liberty infeccin respiratoria viral y congestin nasal / sinusal. Cuidados en el hogar: - Puede katt 600-800 mg de ibuprofeno (Motrin o Advil) cada 6 horas segn sea necesario para el dolor y el malestar. - Puede obtener algo de alivio de george congestin si usa un aerosol nasal de solucin salina para aumentar la humedad en la nariz. Elvira spray se puede comprar en cualquier farmacia. Puede usar 1-2 pulverizaciones en cada fosa nasal segn sea necesario. - Puede obtener un lavado nasal philip un NetiPot en cualquier farmacia. Elvira lavado nasal ayuda a eliminar la congestin y los irritantes de la nariz y los senos nasales. - Use un humidificador por la noche, colocado cerca de george cama, para ayudar a aliviar joelle sntomas de congestin. Tambin puede usar liberty ducha caliente o vapor si no tiene un humidificador - El dolor en el pecho es ms probable debido a la irritacin de la tos frecuente. Usar ibuprofeno philip se mencion (600-800mg cada 6 horas) ayudar con elvira dolor. - Trate de katt lquidos extras. Los lquidos calientes, philip el t o la sopa, pueden ayudar a aliviar joelle sntomas. Seguir: - Eddie liberty josh para stoney a george mdico de cabecera dentro de la prxima semana para el seguimiento. - Busque atencin mdica si desarrolla fiebre a 101F o ms, joelle sntomas no mejoran en 7 [place], desarrolla liberty tos que empeora con kyrie produccin de mucosidad, o si el dolor de pecho empeora, se asocia con el ejercicio o se acompaa de sudoracin. , dificultad para respirar, o mareo. Print Language: ARMENIAN - Post Discharge Activity
[2018-10-25] MEDS ORDERED: IBUPROFEN 400 MG TABLET (FP) PO ONE ×2 (11:25→11:26)
[2018-10-25 12:11] VITALS: BP 128/86; PULSE 79
--- NOTE | 2018-10-26 12:22 | EKG ---
Test Reason : Blood Pressure : / mmHG Vent. Rate : 075 BPM Atrial Rate : 075 BPM P-R Int : 172 ms QRS Dur : 086 ms QT Int : 366 ms P-R-T Axes : 068 041 053 degrees QTc Int : 408 ms NORMAL SINUS RHYTHM NORMAL ECG WHEN COMPARED WITH ECG OF 03-JUL-2017 13:35, NO SIGNIFICANT CHANGE WAS FOUND Confirmed by ANDREW TRUONG MD ([id number]) on 10/26/2018 12:21:39 PM Referred By: Confirmed By:ANDREW TRUONG MD
== END 2018-10-25 12:12 | disposition home or self-care (01) ==
LOC: JER 09:56
DX: J06.9 Acute upper respiratory infection, unspecified (principal); J01.90 Acute sinusitis, unspecified; I10 Essential (primary) hypertension; E78.5 Hyperlipidemia, unspecified; E11.9 Type 2 diabetes mellitus without complications
CPT/HCPCS: 71046-TC-FY; 87804; 93005; 93010; 99284-25

== ENCOUNTER 2018-12-24 10:22 | Emergency (ER) | payer SELFPAY ==
[2018-12-24 10:42] VITALS: BP 167/99; PULSE 75; TEMP 97.9; BMI 27.3
--- NOTE | 2018-12-24 11:28 | PDOC ---
History of Present Illness - General Chief Complaint: Chest Pain Stated Complaint: LF SIDED PAIN, chest pain, left side head pain Time Seen by Provider: 12/24/18 11:21 History Source: Patient - History of Present Illness Presenting Symptoms: Chest Pain Past History - Past Medical History Allergies/Adverse Reactions: Allergies Allergy/AdvReac Type Severity Reaction Status Date / Time Penicillins Allergy Intermediate Hives Verified 12/24/18 10:42 Home Medications: Ambulatory Orders Prednisone [Prednisone 50 MG TABLETS] 50 mg PO DAILY #5 tablet 06/30/17 Solifenacin Succinate [Vesicare -] 5 mg PO DAILY 07/03/17 Tamsulosin HCl 0.4 mg PO DAILY 07/03/17 Aspirin [ASA -] 81 mg PO DAILY 10/25/18 COPD: No Diabetes: Yes HTN: Yes Hypercholesterolemia: Yes Psychiatric Problems: Yes (ANXIETY.) - Immunization History Immunization Up to Date: Yes - Suicide/Smoking/Psychosocial Hx Smoking Status: No Smoking History: Never smoked Have you smoked in the past 12 months: No Number of Cigarettes Smoked Daily: 0 Information on smoking cessation initiated: No Hx Alcohol Use: No Drug/Substance Use Hx: No Substance Use Type: None Hx Substance Use Treatment: No Review of Systems - Review of Systems Constitutional: No: Chills, Fever Respiratory: Yes: Shortness of Breath Cardiac (ROS): Yes: Chest Pain ABD/GI: No: Nausea, Vomiting *Physical Exam - Vital Signs Last Vital Signs Temp Pulse Resp BP Pulse Ox 97.9 F 75 18 167/99 99 12/24/18 10:40 12/24/18 10:40 12/24/18 10:40 12/24/18 10:40 12/24/18 10:40 - Physical Exam General Appearance: Yes: Appropriately Dressed. No: Apparent Distress HEENT: positive: Normal Voice Neck: positive: Supple Respiratory/Chest: positive: Lungs Clear, Normal Breath Sounds. negative: Respiratory Distress Cardiovascular: positive: Regular Rate, S1, S2 Gastrointestinal/Abdominal: positive: Soft. negative: Tender Extremity: positive: Normal Inspection. negative: Pedal Edema Integumentary: positive: Dry, Warm Neurologic: positive: Fully Oriented, Alert, Normal Mood/Affect Heart Score/ECG Review - History History: Slightly suspicious - Electrocardiogram EKG: Normal - Age Age: 45-65 - Risk Factors Risk Factors Heart Score: Yes Hx Hypercholesterolemia, Yes Hx Hypertension, Yes Hx Diabetes Based on the list above the patient has:: >/=3 risk factors or Hx atherosclerotic disease - Troponin Troponin: </= normal limit - Score Heart Score - Total: 3 Moderate Sedation - Procedure Monitoring Vital Signs: Procedure Monitoring Vital Signs Temperature 97.9 F 12/24/18 10:40 Pulse Rate 75 12/24/18 10:40 Respiratory Rate 18 12/24/18 10:40 Blood Pressure 167/99 12/24/18 10:40 O2 Sat by Pulse Oximetry (%) 99 12/24/18 10:40 ED Treatment Course - LABORATORY CBC & Chemistry Diagram: 12/24/18 11:36 12/24/18 11:36 - ADDITIONAL ORDERS Additional order review: Laboratory Results 12/24/18 11:36 Sodium 141 Potassium 4.6 Chloride 109 H Carbon Dioxide 24 Anion Gap 8 BUN 15 Creatinine 1.0 Creat Clearance w eGFR > 60 Random Glucose 94 Calcium 9.4 Total Bilirubin 0.6 AST 27 ALT 60 Alkaline Phosphatase 147 H Creatine Kinase 127 Troponin I < 0.02 Total Protein 7.6 Albumin 4.3 12/24/18 11:36 RBC 5.26 MCV 90.2 MCHC 34.5 RDW 13.4 MPV 8.9 Neutrophils % 54.1 Lymphocytes % 29.6 Monocytes % 3.4 L Eosinophils % 10.5 H Basophils % 2.4 H - RADIOLOGY Radiology Studies Ordered: Category Date Time Status CHEST PA & LAT [RAD] Stat Radiology 12/24/18 11:26 Taken Medical Decision Making - Medical Decision Making 12/24/18 11:27 53-year-old male, history of hypertension, hyperlipidemia, diabetes, here with chest pain. Patient reports non-radiating, non-sternal chest pain that is mild in nature and intermittent, lasting several minutes with no alleviating or exacerbating factors. Also complaining of possible shortness of breath. No diaphoresis, nausea, vomiting, leg pain, swelling, palpitations, cough, fever or chills. States he had similar pain in the past that resolved. No cardiac workup or stress testing in past per patient See exam R/o ACS, less likely PE or dissection -asa -ekg -cxr -labs -reassess 12/24/18 13:05 EKG, chest x-ray and labs unremarkable. Patient denies any chest pain or SOB at this time and continues to be stable. Given heart score, will discharge to follow-up closely with PMD as d/w ED attg. Reasons to return discussed with patient 12/24/18 13:13 *DC/Admit/Observation/Transfer Diagnosis at time of Disposition: Chest pain Qualifiers: Chest pain type: unspecified Qualified Code(s): R07.9 - Chest pain, unspecified - Discharge Dispostion Disposition: HOME Condition at time of disposition: Improved - Referrals - Patient Instructions Printed Discharge Instructions: DI for Atypical Chest Pain Additional Instructions: Your EKG, chest x-ray and labs were normal here You need to follow-up with your PMD next week Turn to ER for worsening of symptoms - Post Discharge Activity
--- NOTE | 2018-12-24 11:55 | PDOC ---
*Physical Exam - Vital Signs Last Vital Signs Temp Pulse Resp BP Pulse Ox 97.9 F 75 18 167/99 99 12/24/18 10:40 12/24/18 10:40 12/24/18 10:40 12/24/18 10:40 12/24/18 10:40 ED Treatment Course - LABORATORY CBC & Chemistry Diagram: 12/24/18 11:36 12/24/18 11:36 Medical Decision Making - Medical Decision Making 12/24/18 11:55 Pt seen by Midlevel Provider under my direct supervision Ancillary studies reviewed Twelve-lead EKG was performed and reviewed by me. There is normal sinus rhythm with a normal rate. The axis is normal. The intervals are normal. There are no ST or T wave abnormalities. Impression: Normal twelve-lead EKG I agree with plan as outlined by Midlevel Provider 12/24/18 12:04 12/25/18 21:27 *DC/Admit/Observation/Transfer Diagnosis at time of Disposition: Chest pain - Discharge Dispostion Disposition: HOME Condition at time of disposition: Improved - Referrals - Patient Instructions Printed Discharge Instructions: DI for Atypical Chest Pain Additional Instructions: Your EKG, chest x-ray and labs were normal here You need to follow-up with your PMD next week Turn to ER for worsening of symptoms - Post Discharge Activity
[2018-12-24 12:21] LABS: BASO % 2.4 % (0-2.0); EOS % 10.5 % (0-4.5); HEMATOCRIT 47.5 % (35.4-49); HEMOGLOBIN 16.4 GM/dL (11.7-16.9); LYMPH % 29.6 % (8-40); MCH 31.1 pg (25.7-33.7); MCHC 34.5 g/dl (32.0-35.9); MEAN CELL VOLUME 90.2 fl (80-96); MEAN PLT VOLUME 8.9 fl (7.5-11.1); MONO % 3.4 % (3.8-10.2); NEUT % 54.1 % (42.8-82.8); PLATELET COUNT 230 K/MM3 (134-434); RBC 5.26 M/mm3 (4.00-5.60); RDW 13.4 % (11.9-15.9); WHITE BLOOD COUNT 7.3 K/mm3 (4.0-10.0)
[2018-12-24 12:35] LABS: ALBUMIN 4.3 g/dl (3.4-5.0); ALK PHOS 147 U/L (45-117); ANION GAP 8 MMOL/L (8-16); BILIRUBIN,TOTAL 0.6 mg/dL (0.2-1); BLOOD UREA NITROGEN 15 mg/dL (7-18); CALCIUM 9.4 mg/dL (8.5-10.1); CHLORIDE 109 mmol/L (98-107); CO2 24 mmol/L (21-32); GLUCOSE,RANDOM 94 mg/dL (74-106); POTASSIUM 4.6 mmol/L (3.5-5.1); SGOT/AST 27 U/L (15-37); SGPT/ALT 60 U/L (13-61); SODIUM 141 mmol/L (136-145); TOT PROT 7.6 g/dl (6.4-8.2)
--- NOTE | 2018-12-24 16:04 | EKG ---
Test Reason : Blood Pressure : / mmHG Vent. Rate : 066 BPM Atrial Rate : 066 BPM P-R Int : 156 ms QRS Dur : 102 ms QT Int : 374 ms P-R-T Axes : 017 047 051 degrees QTc Int : 392 ms NORMAL SINUS RHYTHM NORMAL ECG WHEN COMPARED WITH ECG OF 25-OCT-2018 10:01, NO SIGNIFICANT CHANGE WAS FOUND Confirmed by MAEGAN MARCUS MD ([id number]) on 12/24/2018 4:03:38 PM Referred By: Confirmed By:MAEGAN MARCUS MD
== END 2018-12-24 13:12 | disposition home or self-care (01) ==
LOC: JER 10:22
DX: R07.9 Chest pain, unspecified (principal); I10 Essential (primary) hypertension; E78.5 Hyperlipidemia, unspecified; E11.9 Type 2 diabetes mellitus without complications; F32.9 Major depressive disorder, single episode, unspecified
CPT/HCPCS: 36415; 71046-TC-FY; 80053; 82550; 84484; 85025; 93005; 93010; 99282-25

== ENCOUNTER 2020-06-11 09:05 | Emergency (ER) | payer OTHER ==
[2020-06-11 09:16] VITALS: BMI 29.0
[2020-06-11] MEDS ORDERED: ACETAMINOPHEN 325 MG TABLET (FP) PO ONE (10:14)
[2020-06-11] MEDS ORDERED: ACETAMINOPHEN 325 MG TABLET (FP) ONE (10:20)
[2020-06-11 10:44] LABS: BASO % 1.3 % (0-2.0); EOS % 2.4 % (0-4.5); HEMATOCRIT 49.8 % (35.4-49); MCH 31.7 pg (25.7-33.7); MEAN CELL VOLUME 93.1 fl (80-96); MEAN PLT VOLUME 8.9 fl (7.5-11.1); MONO % 5.1 % (3.8-10.2); NEUT % 71.2 % (42.8-82.8); PLATELET COUNT 266 K/MM3 (134-434); RBC 5.35 M/mm3 (4.00-5.60); RDW 13.9 % (11.9-15.9); WHITE BLOOD COUNT 8.3 K/mm3 (4.0-10.0)
--- NOTE | 2020-06-11 10:56 | PDOC ---
History of Present Illness - General Chief Complaint: Pain Stated Complaint: PAIN Time Seen by Provider: 06/11/20 09:32 - History of Present Illness Initial Comments: Pt is a 54yo M with PMH HTN, BPH who presents with chest pain and fever. States that he had a work injury 1 week ago, when he fell 4-5 feet with a jackhammer landing on his chest. Denies LOC, head trauma. States that chest pain began yesterday, located in upper R sternum, itchy, is constant, non radiating, 7/10, improved with sitting up. States fever (not measured, "felt warm at his neck") began yesterday, self-resolved, and returned later in the evening. States that Tylenol improved both pain and fever. States that he also has dysuria, present since he had a bladder biopsy. A/w SOB, sore throat, shoulder pain, burning sensation in stomach. Denies chills, fatigue, palpitations, abdominal pain, n/v, leg swelling. PCP: [facility] PMH: HTN, BPH PSHx: denies Meds: amlodipine, flomax, macrobid All: penicillin Social: denies tobacco, etoh, illicit drug use Past History - Medical History Allergies/Adverse Reactions: Allergies Allergy/AdvReac Type Severity Reaction Status Date / Time Penicillins Allergy Intermediate Hives Verified 06/11/20 09:11 Home Medications: Ambulatory Orders Tamsulosin HCl 0.4 mg PO DAILY 07/03/17 Amlodipine Besylate [Norvasc -] 5 mg PO DAILY 06/11/20 Nitrofurantoin Macrocrystal [Nitrofurantoin] 100 mg PO ASDIR 06/11/20 CVA: Yes COPD: No Diabetes: Yes HTN: Yes Hypercholesterolemia: Yes Psychiatric Problems: Yes (ANXIETY.) - Immunization History Immunization Up to Date: Yes - Psycho-Social/Smoking History Smoking Status: No Smoking History: Never smoked Have you smoked in the past 12 months: No Number of Cigarettes Smoked Daily: 0 - Substance Abuse Hx (Audit-C & DAST Scrn) How often the patient has a drink containing alcohol: Never Score: In Men: 4 or > Positive; In Women: 3 or > Positive: 0 Screen Result (Pos requires Nsg. Audit-10AR): Negative In the last yr the pt used illegal drug/Rx for NonMed reason: No Score: Yes response is considered Positive: 0 Screen Result (Positive result requires Nsg. DAST-10): Negative Review of Systems - Review of Systems Able to Perform ROS?: Yes Comments:: CONSTITUTIONAL:reports fever, denies chills, diaphoresis, generalized weakness, loss of appetite HEENT:reports sore throat, denies rhinorrhea, nasal congestion, ear pain, eye pain, visual Changes CARDIOVASCULAR:reports chest pain, denies syncope, palpitations, lightheadedness RESPIRATORY:reports SOB; denies cough, wheezing GASTROINTESTINAL: denies abdominal pain, nausea, vomiting, diarrhea, constipation GENITOURINARY:reports dysuria, frequency, flank pain MUSCULOSKELETAL:reports neck, back pain; denies myalgia, arthralgia ENDOCRINE: denies unexplained weight gain, unexplained weight loss NEUROLOGIC:denies headache, loss of consciousness, dizziness, unsteady gait, mental status changes, bladder or bowel incontinence SKIN:denies rash, itching, pallor *Physical Exam - Vital Signs Last Vital Signs Temp Pulse Resp BP Pulse Ox 99.1 F 110 H 18 142/112 H 100 06/11/20 09:11 06/11/20 09:11 06/11/20 09:11 06/11/20 09:11 06/11/20 09:11 - Physical Exam General: awake, alert, in no acute distress, well developed, well nourished Head: normocephalic, atraumatic Eyes: PERRL, EOMI, anicteric sclera, conjunctiva clear ENT: hearing grossly normal, oropharynx clear without exudates, Moist mucous membranes Neck: supple, normal ROM Lung: equal breath sounds b/l, CTA b/l, no crackles, wheezes; no distress, speaks full sentences Heart: RRR, normal S1, S2, no murmurs, rubs, gallops Abdomen: soft, non tender, normoactive bowel sounds, no guarding, rebound, masses Extremities: normal ROM, no edema, no erythema or tenderness, DP/PT pulses 2+ and symmetric, no clubbing, cyanosis Neuro: CN2-12 grossly intact, moves all extremities, normal speech, normal gait, sensation intact Skin: warm, dry, no rashes or lesions noted ED Treatment Course - LABORATORY CBC & Chemistry Diagram: 06/11/20 10:20 06/11/20 10:26 - ADDITIONAL ORDERS Additional order review: 06/11/20 10:20 RBC 5.35 MCV 93.1 MCHC 34.0 RDW 13.9 MPV 8.9 Neutrophils % 71.2 Lymphocytes % 20.0 D Monocytes % 5.1 Eosinophils % 2.4 Basophils % 1.3 - Medications Given in the ED: ED Medications Discontinued Medications Generic Name Dose Route Start Last Admin Trade Name Freq PRN Reason Stop Dose Admin Acetaminophen 975 mg 06/11/20 10:14 06/11/20 10:26 Tylenol - PO 06/11/20 10:15 975 mg ONCE ONE Administration Medical Decision Making - Medical Decision Making Pt is a 54yo M with PMH HTN, BPH who presents with chest pain, fever x1 day Vital Signs Period Temp Pulse Resp BP Sys/Paul Pulse Ox Last 24 Hr 99.1 F 110 18 142/112 100 DDx: ACS, dissection, rib fracture, covid, PE Plan: labs, EKG, CXR EKG: HR 89bpm, normal sinus rhythm, VA 176ms, QRS 84ms, QTc 411ms, no ST changes, unchanged from previous 05/2020. CXR: no acute chest pathology Laboratory Tests 06/11/20 06/11/20 10:20 10:26 WBC 8.3 RBC 5.35 Hgb 17.0 H Hct 49.8 H MCV 93.1 MCH 31.7 MCHC 34.0 RDW 13.9 Plt Count 266 MPV 8.9 Absolute Neuts (auto) 5.9 Neutrophils % 71.2 Lymphocytes % 20.0 D Monocytes % 5.1 Eosinophils % 2.4 Basophils % 1.3 Nucleated RBC % 0 Sodium 139 Potassium 4.1 Chloride 108 H Carbon Dioxide 25 Anion Gap 6 L BUN 8.3 Creatinine 1.1 Est GFR (CKD-EPI)AfAm 87.74 Est GFR (CKD-EPI)NonAf 75.70 Random Glucose 113 H Calcium 9.3 06/11/20 12:[address] read On re-assessment, patient denies chest pain 06/11/20 12:51 CT read: Normal size and enhancement of the thoracic and abdominal aorta without evidence of aneurysmal dilatation or dissection. No acute lung disease is present. Minimal fatty infiltration of the liver. No CT evidence of an acute process in the abdomen and pelvis. Schmorl's node with mild likely chronic compression of T12 superior endplate with mild sclerotic changes and without compromise of the spinal canal. The rest of the visualized osseous structures appear to be intact. 06/11/20 13:03 Patient stable for discharge. Pain controlled. Informed of all lab and imaging results. Given follow up instructions and strict return precautions. Patient expressed understanding and agree to plan Disposition: Discharge to home Discharge - Discharge Information Problems reviewed: Yes Clinical Impression/Diagnosis: Chest wall pain Condition: Stable Disposition: HOME - Follow up/Referral Referrals: Lobo Reis MD [Primary Care Provider] - - Patient Discharge Instructions Patient Printed Discharge Instructions: DI for Chest Pain Additional Instructions: You came into the ER chest pain. In the ED, you were evaluated with labs, electrocardiogram (EKG), chest xray, and CT scan. Your lab results, EKG, chest xray, and CT scan results normal - you do not have an infection, you do not have a broken rib, you did not have a heart attack. You did not have a fever in the ED today. Your shoulder pain is likely due to your work with the [employer]. You do not appear to be an acute need for immediate hospitalization. You were advised to follow up with your primary care doctor within 1 week. Come back to the ER immediately with any new or worsening concerns. Thank you for coming to the [facility] ER. We hope you feel better soon! Llegaste a la angela de emergencias con dolor en el [facility]. En el servicio de urgencias, se lo evalu con laboratorios, electrocardiograma (EKG), radiografa de trax y tomografa computarizada. Los resultados de laboratorio, EKG, radiografa de trax y tomografa computarizada son normales: no tiene liberty infeccin, no tiene liberty mary rota, no tuvo un ataque cardaco. Hoy no tuvo fiebre en el servicio de urgencias. Lynn dolor en el hombro probablemente se deba a lynn trabajo con el [employer]. No parece ser liberty necesidad aguda de hospitalizacin inmediata. Se le aconsej que hiciera un seguimiento con lynn mdico de atencin primaria dentro de 1 semana. Regrese a la angela de emergencias de inmediato con cualquier inquietud nueva o que empeore. Dex por venir a la angela de emergencias de [place]. Esperamos que te sientas mejor pronto! Print Language: GREENLANDIC - Post Discharge Activity
[2020-06-11 11:21] LABS: ANION GAP 6 MMOL/L (8-16); BLOOD UREA NITROGEN 8.3 mg/dL (7-18); CALCIUM 9.3 mg/dL (8.5-10.1); CHLORIDE 108 mmol/L (98-107); CO2 25 mmol/L (21-32); CREATININE 1.1 mg/dL (0.55-1.3); GLUCOSE,RANDOM 113 mg/dL (74-106); POTASSIUM 4.1 mmol/L (3.5-5.1); SODIUM 139 mmol/L (136-145)
--- NOTE | 2020-06-11 11:30 | PDOC ---
Documentation entered by Mauricio Minaya SCRIBE, acting as scribe for Fazal May MD. Fazal May MD: This documentation has been prepared by the Marimar downs Aaron, SCRIBE, under my direction and personally reviewed by me in its entirety. I confirm that the documentation accurately reflects all work, treatment, procedures, and medical decision making performed by me. Attending Attestation - Resident Resident Name: SamyJanelle - ED Attending Attestation I have performed the following: I have examined & evaluated the patient, The case was reviewed & discussed with the resident, I agree w/resident's findings & plan, Exceptions are as noted - HPI HPI: 06/11/20 10:58 The patient is a 54 year old male with a significant PMH of HTN, arthritis, and HLD who presents to the emergency department for chest pain and fever that began at 4 pm yesterday. Patient had an accident at work one week ago that involved a 5 ft fall and a jackhammer landing on his chest. Patient describes the chest pain as a constant 7/10 that radiates to his shoulders, which is improved by sitting up. Patient applied vapor rub to his chest yesterday and claims it feels itchy today. Patient also had a fever that began yesterday after his dc from the ED at 4 pm, he took tylenol which alleviated fever; Fever returned at 9 pm. No tylenol was taken today. Patient also endorses SOB, sore throat, back pain, and a burning sensation in his stomach. Pt was seen here yesterday for flank pain. Had normal labs and CT abd/pelvis. The patient denies any other symptoms. Allergies: Penicillin PCP: Lobo Reis MD - Physicial Exam PE: 06/11/20 11:31 See resident exam - Medical Decision Making 06/11/20 11:32 54 M with fevers, chest pain radiating to shoulders. - Labs, trop - EKG unremarkable - CTA to r/o dissection 06/11/20 13:[address] chest unremarkable, negative for dissection. Pt is well appearing, with normal vitals. Clinically stable for DC at this time. I discussed the physical exam findings, ancillary test results and final diagnoses with the patient. I answered all of the patient's questions. The patient was satisfied with the care received and felt comfortable with the discharge plan and treatment plan. The patient agrees to follow up with the primary care physician within 24-72 hours. Discharge - Discharge Information Problems reviewed: Yes Clinical Impression/Diagnosis: Chest wall pain Condition: Stable Disposition: HOME - Follow up/Referral Referrals: Lobo Reis MD [Primary Care Provider] - - Patient Discharge Instructions Patient Printed Discharge Instructions: DI for Chest Pain Additional Instructions: You came into the ER chest pain. In the ED, you were evaluated with labs, electrocardiogram (EKG), chest xray, and CT scan. Your lab results, EKG, chest xray, and CT scan results normal - you do not have an infection, you do not have a broken rib, you did not have a heart attack. You did not have a fever in the ED today. Your shoulder pain is likely due to your work with the [employer]. You do not appear to be an acute need for immediate hospitalization. You were advised to follow up with your primary care doctor within 1 week. Come back to the ER immediately with any new or worsening concerns. Thank you for coming to the [facility] ER. We hope you feel better soon! Llegaste a la angela de emergencias con dolor en el [place]. En el servicio de urgencias, se lo evalu con laboratorios, electrocardiograma (EKG), radiografa de trax y tomografa computarizada. Los resultados de laboratorio, EKG, radiografa de trax y tomografa computarizada son normales: no tiene liberty infeccin, no tiene liberty mary rota, no tuvo un ataque cardaco. Hoy no tuvo fiebre en el servicio de urgencias. Lynn dolor en el hombro probablemente se deba a lynn trabajo con el [employer]. No parece ser liberty necesidad aguda de hospitalizacin inmediata. Se le aconsej que hiciera un seguimiento con lynn mdico de atencin primaria dentro de 1 semana. Regrese a la angela de emergencias de inmediato con cualquier inquietud nueva o que empeore. Dex por venir a la angela de emergencias de [place]. Esperamos que te sientas mejor pronto! Print Language: TELUGU - Post Discharge Activity
[2020-06-11 12:27] VITALS: BP 131/78; PULSE 70; TEMP 97.9
[2020-06-11] MEDS ORDERED: SODIUM CHLORIDE 1,000 ML IV STA (12:43)
[2020-06-11] MEDS ORDERED: KETOROLAC TROMETHAMINE 30 MG/1 ML VIAL IVPUSH ONE (12:43)
[2020-06-11] MEDS ORDERED: KETOROLAC TROMETHAMINE 30 MG/1 ML VIAL ONE (12:56)
--- NOTE | 2020-06-13 10:12 | EKG ---
Test Reason : Blood Pressure : / mmHG Vent. Rate : 089 BPM Atrial Rate : 089 BPM P-R Int : 176 ms QRS Dur : 084 ms QT Int : 338 ms P-R-T Axes : 048 013 050 degrees QTc Int : 411 ms NORMAL SINUS RHYTHM NORMAL ECG WHEN COMPARED WITH ECG OF 10-JUN-2020 10:11, NO SIGNIFICANT CHANGE WAS FOUND Confirmed by Prerna Dean ([id number]) on 06/13/2020 10:11:48 AM Referred By: Confirmed By:Prerna Dean
== END 2020-06-11 13:29 | disposition home or self-care (01) ==
LOC: JER 09:05
PROC: 3E0233Z Introduction of Anti-inflammatory into Muscle, Percutaneous Approach (ICD-10-PCS; principal; 2020-06-11)
PROC: 3E0337Z Introduction of Electrolytic and Water Balance Substance into Peripheral Vein, Percutaneous Approach (ICD-10-PCS; 2020-06-11)
DX: R07.89 Other chest pain (principal)
CPT/HCPCS: 36415; 71046-TC-FY; 71275-TC; 74174-TC; 80048; 82550; 82553; 84484; 85025; 93005; 93010; 99285-25; Q9967; U0003

== ENCOUNTER 2021-06-20 15:18 | Emergency (ER) | payer OTHER ==
[2021-06-20 15:24] VITALS: BP 103/79; PULSE 76; TEMP 98.9; BMI 29.0
== END 2021-06-20 15:25 | disposition left against medical advice (07) ==
LOC: JER 15:18
DX: R07.9 Chest pain, unspecified (principal)
CPT/HCPCS: 93005; 93010; 99281-25

== ENCOUNTER 2021-06-20 18:56 | Emergency (ER) | payer OTHER ==
[2021-06-20 19:14] VITALS: BMI 29.0
[2021-06-20] MEDS ORDERED: ACETAMINOPHEN 325 MG TABLET (FP) PO ONE (20:45)
[2021-06-20] MEDS ORDERED: MAG HYDROX/AL HYDROX/SIMETH 30 ML UNIT-DOSE CUP PO ONE (20:45)
[2021-06-20] MEDS ORDERED: SUCRALFATE 1 GM TABLET (FP) PO ONE (20:45)
[2021-06-20] MEDS ORDERED: FAMOTIDINE 10 MG TABLET PO ONE (20:45)
[2021-06-20] MEDS ORDERED: ACETAMINOPHEN 325 MG TABLET (FP) ONE (20:55)
[2021-06-20] MEDS ORDERED: FAMOTIDINE 10 MG TABLET ONE (20:56)
[2021-06-20] MEDS ORDERED: MAG HYDROX/AL HYDROX/SIMETH 30 ML UNIT-DOSE CUP ONE (20:56)
[2021-06-20] MEDS ORDERED: SUCRALFATE 1 GM TABLET (FP) ONE (20:56)
[2021-06-20 21:13] LABS: BASO % 0.8 % (0-2.0); EOS % 2.8 % (0-4.5); HEMATOCRIT 44.8 % (35.4-49); HEMOGLOBIN 15.5 GM/dL (11.7-16.9); LYMPH % 21.8 % (8-40); MCH 31.1 pg (25.7-33.7); MCHC 34.6 g/dl (32.0-35.9); MEAN CELL VOLUME 89.8 fl (80-96); MEAN PLT VOLUME 8.6 fl (7.5-11.1); MONO % 3.3 % (3.8-10.2); NEUT % 71.3 % (42.8-82.8); PLATELET COUNT 213 10^3/uL (134-434); RBC 4.99 M/mm3 (4.00-5.60); RDW 13.3 % (11.9-15.9); WHITE BLOOD COUNT 9.3 K/mm3 (4.0-10.0)
[2021-06-20 21:35] LABS: CHLORIDE 109 mmol/L (98-107); SODIUM 140 mmol/L (136-145)
[2021-06-20 21:37] LABS: CALCIUM 8.7 mg/dL (8.5-10.1)
[2021-06-20 21:38] LABS: ANION GAP 7 MMOL/L (8-16); BLOOD UREA NITROGEN 12.8 mg/dL (7-18); CO2 23 mmol/L (21-32); GLUCOSE,RANDOM 100 mg/dL (74-106); MAGNESIUM 2.4 mg/dL (1.8-2.4)
[2021-06-20 21:41] LABS: CREATININE 0.9 mg/dL (0.55-1.3); SGOT/AST 18 U/L (15-37); SGPT/ALT 39 U/L (13-61)
[2021-06-20 21:42] LABS: BILIRUBIN,TOTAL 0.5 mg/dL (0.2-1); TOT PROT 7.2 g/dl (6.4-8.2)
[2021-06-20 21:43] LABS: ALK PHOS 127 U/L (45-117)
[2021-06-21] VITALS: BP 134/76; PULSE 82; TEMP 98.3
== END 2021-06-21 | disposition home or self-care (01) ==
LOC: JER 18:56
DX: R07.9 Chest pain, unspecified (principal)
CPT/HCPCS: 36415; 71046-TC-FY; 80053; 83735; 84484; 85025; 93005; 93010; 99285-25; C9803; U0003; U0005

== ENCOUNTER 2021-06-24 11:03 | Emergency (ER) | payer OTHER ==
[2021-06-24 11:39] VITALS: BMI 29.0
[2021-06-24] MEDS ORDERED: MAG HYDROX/AL HYDROX/SIMETH -MYLANTA- ORAL SUSPENSION PO ONE (13:38)
[2021-06-24] MEDS ORDERED: KETOROLAC TROMETHAMINE 30 MG/1 ML VIAL IVPUSH ONE (13:38)
[2021-06-24] MEDS ORDERED: FAMOTIDINE 20 MG/50 ML IVPB 20 MG/50 ML MG IVPB ONE ×2 (13:38→14:16)
[2021-06-24] MEDS ORDERED: LIDOCAINE 5% TOPICAL PATCH TP ONE (13:38)
[2021-06-24] MEDS ORDERED: KETOROLAC TROMETHAMINE 30 MG/1 ML VIAL ONE (14:16)
[2021-06-24] MEDS ORDERED: LIDOCAINE 5% TOPICAL PATCH ONE (14:16)
[2021-06-24] MEDS ORDERED: MAG HYDROX/AL HYDROX/SIMETH 30 ML UNIT-DOSE CUP ONE (14:16)
[2021-06-24 14:55] LABS: EOS % 3.6 % (0-4.5); HEMATOCRIT 46.6 % (35.4-49); HEMOGLOBIN 16.2 GM/dL (11.7-16.9); LYMPH % 34.3 % (8-40); MCH 31.7 pg (25.7-33.7); MCHC 34.6 g/dl (32.0-35.9); MEAN CELL VOLUME 91.6 fl (80-96); MEAN PLT VOLUME 8.9 fl (7.5-11.1); MONO % 4.7 % (3.8-10.2); NEUT % 56.4 % (42.8-82.8); PLATELET COUNT 235 10^3/uL (134-434); RBC 5.09 M/mm3 (4.00-5.60); RDW 13.2 % (11.9-15.9); WHITE BLOOD COUNT 7.6 K/mm3 (4.0-10.0)
[2021-06-24 15:19] LABS: CHLORIDE 106 mmol/L (98-107); SODIUM 138 mmol/L (136-145)
[2021-06-24 15:21] LABS: ALBUMIN 4.1 g/dl (3.4-5.0); BLOOD UREA NITROGEN 11.6 mg/dL (7-18); CALCIUM 8.7 mg/dL (8.5-10.1); CO2 28 mmol/L (21-32)
[2021-06-24 15:22] LABS: GLUCOSE,RANDOM 87 mg/dL (74-106)
[2021-06-24 15:24] LABS: SGOT/AST 52 U/L (15-37); SGPT/ALT 43 U/L (13-61)
[2021-06-24 15:25] LABS: CREATININE 1.1 mg/dL (0.55-1.3)
[2021-06-24 15:26] LABS: BILIRUBIN,TOTAL 1.1 mg/dL (0.2-1); TOT PROT 7.5 g/dl (6.4-8.2)
[2021-06-24 15:27] LABS: ALK PHOS 121 U/L (45-117)
[2021-06-24 15:49] LABS: ANION GAP 4 MMOL/L (8-16)
[2021-06-24 16:05] VITALS: BP 115/71; PULSE 62; TEMP 98.4
[2021-06-24 16:25] LABS: BLOOD UREA NITROGEN 11.5 mg/dL (7-18); CALCIUM 8.9 mg/dL (8.5-10.1)
[2021-06-24 16:29] LABS: CREATININE 0.9 mg/dL (0.55-1.3)
[2021-06-24] MEDS ORDERED: LIDOCAINE PATCH REMOVAL MC ONE (22:00)
== END 2021-06-24 16:45 | disposition home or self-care (01) ==
LOC: JER 11:03
PROC: 3E033NZ Introduction of Analgesics, Hypnotics, Sedatives into Peripheral Vein, Percutaneous Approach (ICD-10-PCS; principal; 2021-06-24)
PROC: 3E0333Z Introduction of Anti-inflammatory into Peripheral Vein, Percutaneous Approach (ICD-10-PCS; 2021-06-24)
DX: R07.9 Chest pain, unspecified (principal); R06.02 Shortness of breath; K21.9 Gastro-esophageal reflux disease without esophagitis; R09.82 Postnasal drip
CPT/HCPCS: 36415; 71046-TC-FY; 80048; 80053; 84484; 85025; 85379; 87880; 93005; 93010; 99284-25

== ENCOUNTER 2021-10-14 12:14 | Emergency (ER) | payer OTHER ==
[2021-10-14 13:35] VITALS: BMI 29.0
[2021-10-14 16:03] LABS: EOS % 2.1 % (0-4.5); HEMATOCRIT 42.8 % (35.4-49); LYMPH % 29.7 % (8-40); MCH 31.8 pg (25.7-33.7); MEAN CELL VOLUME 90.8 fl (80-96); MEAN PLT VOLUME 8.9 fl (7.5-11.1); MONO % 3.9 % (3.8-10.2); NEUT % 63.3 % (42.8-82.8); PLATELET COUNT 229 10^3/uL (134-434); RBC 4.71 M/mm3 (4.00-5.60); WHITE BLOOD COUNT 7.1 K/mm3 (4.0-10.0)
[2021-10-14 16:22] LABS: CHLORIDE 110 mmol/L (98-107); SODIUM 142 mmol/L (136-145)
[2021-10-14 16:25] LABS: ALBUMIN 3.8 g/dl (3.4-5.0); ANION GAP 7 MMOL/L (8-16); BLOOD UREA NITROGEN 14.2 mg/dL (7-18); CALCIUM 8.7 mg/dL (8.5-10.1); CO2 26 mmol/L (21-32); GLUCOSE,RANDOM 87 mg/dL (74-106); LIPASE 98 U/L (73-393); MAGNESIUM 2.3 mg/dL (1.8-2.4)
[2021-10-14 16:28] LABS: CREATININE 0.9 mg/dL (0.55-1.3); SGOT/AST 26 U/L (15-37); SGPT/ALT 36 U/L (13-61)
[2021-10-14 16:30] LABS: BILIRUBIN,TOTAL 0.5 mg/dL (0.2-1); TOT PROT 6.8 g/dl (6.4-8.2)
[2021-10-14 16:31] LABS: ALK PHOS 135 U/L (45-117)
[2021-10-14 17:39] VITALS: BP 113/83; PULSE 60; TEMP 98.2
== END 2021-10-14 18:43 | disposition home or self-care (01) ==
LOC: JER 12:14
DX: R07.9 Chest pain, unspecified (principal); M79.10 Myalgia, unspecified site
CPT/HCPCS: 36415; 71046-TC-FY; 80053; 82550; 82553; 83690; 83735; 84484; 85025; 87804; 93005; 93010; 99285-25; C9803; U0003; U0005